=== PATIENT | male | born 1980 | race Caucasian/White ===

== ENCOUNTER 2016-05-10 | Emergency (ER) | payer SELFPAY | END 2016-05-10 21:54 | disposition home or self-care (01) ==

== ENCOUNTER 2018-08-15 19:06 | Emergency (ER) | payer SELFPAY ==
[2018-08-15 19:13] VITALS: BP 169/110
--- NOTE | 2018-08-15 19:27 | ED Physician Documentation ---
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 This decreased and he is taking some fluids now. But still having feeling of general weakness and some nausea. No current abd pains, but recent intermittent cramping the past couple of hours.) Timing - details: Abrupt onset, Still present (much decreased the past couple of hours, but still general weakness and some nausea.) Associated symptoms: Abdominal pain (cramping intermittent lower abd), Dizzy (feeling lightheaded earlier, but not currently), Loss of appetite. No: Fever, Hematemesis, Hematochezia Improved by: No: Vomiting Worsened by: Eating Similar symptoms before: Has not had sx before Recently seen: Not recently seen Review of Systems Constitutional: reports: Myalgias. denies: Fever Nose: denies: Rhinorrhea / runny nose, Congestion Throat: denies: Sore throat Cardiac: denies: Chest pain / pressure Respiratory: denies: Cough GI: reports: Abdominal Pain, Nausea, Vomiting, Diarrhea. denies: Abdominal Swelling, Hematemesis, Bloody / black stool Neurologic: reports: Generalized weakness, Headache (mild). denies: Near syncope, Altered mental status PD PAST MEDICAL HISTORY - Past Medical History Past Medical History: No Cardiovascular: None Respiratory: None Endocrine/Autoimmune: None - Past Surgical History Past Surgical History: Yes Ortho: Other - Present Medications Home Medications: Ambulatory Orders Medication Instructions Recorded Confirmed Ondansetron Odt [Zofran] 4 mg TL Q6H PRN #10 tablet 08/15/18 - Allergies Allergies/Adverse Reactions: Allergies Allergy/AdvReac Type Severity Reaction Status Date / Time camphor [From Vicks Vaporub] Allergy Unknown Verified 08/15/18 19:14 eucalyptus Allergy Unknown Verified 08/15/18 19:14 [From Vicks Vaporub] eucalyptus oil * Allergy Unknown Verified 08/15/18 19:14 [From Vicks Vaporub] menthol [From Vicks Vaporub] Allergy Unknown Verified 08/15/18 19:14 petrolatum,white Allergy Unknown Verified 08/15/18 19:14 [From Vicks Vaporub] turpentine oil Allergy Unknown Verified 08/15/18 19:14 [From Vicks Vaporub] - Social History Does the pt smoke?: Yes Smoking Status: Current every day smoker Does the pt drink ETOH?: Yes Does the pt have substance abuse?: Yes Substance Use and Type: Marijuana - Immunizations Immunizations are current?: No Immunizations: TDAP >10years/unknown - POLST Patient has POLST: No PD ED PE NORMAL - Vitals Vital signs reviewed: Yes - General General: Alert and oriented X 3, Well developed/nourished - HEENT HEENT: Pharynx benign. No: Moist mucous membranes - Neck Neck: Supple, no meningeal sign, No adenopathy - Cardiac Cardiac: No murmur. No: RRR (regular but tachycardic) - Respiratory Respiratory: Clear bilaterally - Abdomen Abdomen: Soft, Non tender, Non distended. No: Normal bowel sounds (diminished) - Derm Derm: Normal color, Warm and dry - Neuro Neuro: Alert and oriented X 3, No motor deficit, Normal speech Results - Vitals Vitals: Vital Signs - 24 hr 08/15/18 19:11 Temperature 36.7 C Heart Rate 124 H Respiratory 20 Rate Blood Pressure 169/110 H O2 Saturation 99 Oxygen O2 Source Room air PD MEDICAL DECISION MAKING - ED course Complexity details: considered differential (Sounds likely a viral GE. He does not feel he needs IV fluids, despite some tachycardia. Shared decision to treat with meds and see how he does into tomorrow. ), d/w patient Departure - Departure Disposition: 01 Home, Self Care Clinical Impression: Nausea vomiting and diarrhea Condition: Stable Record reviewed to determine appropriate education?: Yes Instructions: ED Food Poison Or Gastroenteritis Prescriptions: Ondansetron Odt [Zofran] 4 mg TL Q6H PRN #10 tablet PRN Reason: Nausea / Vomiting Comments: This sounds likely to be a viral intestinal illness or possibly food poisoning. Both usually last 12-24 hours and then improve. He will likely feel little headache and achy for a day or so. Use ondansetron if needed for nausea. Tylenol if needed for aches and pains. I wrote a prescription for more nausea medicine so you less likely to need it beyond tonight. Off work today. Resume Friday assuming feeling better. Forms: Activity restrictions Discharge Date/Time: 08/15/18 19:53
[2018-08-15] MEDS ORDERED: ONDANSETRON ODT 4 MG TABLET TL STA (19:41)
[2018-08-15] MEDS ORDERED: ONDANSETRON ODT 4 MG Prepack 2 TL PRN (19:41)
[2018-08-15] MEDS ORDERED: ACETAMINOPHEN 325 MG TABLET PO STA (19:41)
== END 2018-08-15 19:53 | disposition home or self-care (01) ==
LOC: ED 19:06
DX: R11.2 Nausea with vomiting, unspecified (principal); R19.7 Diarrhea, unspecified; F17.200 Nicotine dependence, unspecified, uncomplicated
CPT/HCPCS: 99283; A9270; Q0162

== ENCOUNTER 2020-07-18 10:23 | Inpatient (IN) | payer MEDICAID ==
[2020-07-18] MEDS ORDERED: SODIUM CHLORIDE 0.9% 1,000 ML IV STA (10:47)
[2020-07-18] MEDS ORDERED: INSULIN REGULAR HUMAN 100 UNIT/1 ML 10 ML MDV SUBQ STA (10:47)
[2020-07-18 11:21] LABS: BILIRUBIN,URINE NEGATIVE (NEGATIVE); GLUCOSE, URINE (UA) >=1000 mg/dL (NEGATIVE); KETONES,URINE (UA) NEGATIVE (NEGATIVE); LEUKOCYTE ESTERASE, URINE NEGATIVE (NEGATIVE); NITRITE,URINE NEGATIVE (NEGATIVE); OCCULT BLOOD,URINE NEGATIVE (NEGATIVE); PROTEIN,URINE NEGATIVE (NEGATIVE); UROBILINOGEN,URINE 0.2 (NORMAL) E.U./dL (NORMAL)
[2020-07-18 11:22] LABS: CLARITY,URINE CLEAR (CLEAR)
[2020-07-18 11:25] LABS: BASOPHILS # (AUTO) 0.1 10^3/uL (0.0-0.1); BASOPHILS % (AUTO) 0.8 %; EOSINOPHILS # (AUTO) 0.1 10^3/uL (0.0-0.7); EOSINOPHILS % (AUTO) 1.5 %; HCT - HEMATOCRIT 47.8 % (42.0-52.0); HGB - HEMOGLOBIN 16.9 g/dL (14.0-18.0); LYMPHOCYTES # (AUTO) 2.4 10^3/uL (1.5-3.5); LYMPHOCYTES % (AUTO) 30.6 %; MEAN CORPUSCULAR HEMOGLOBIN 28.8 pg (27.0-31.0); MEAN CORPUSCULAR HGB CONC 35.4 g/dL (32.0-36.0); MEAN CORPUSCULAR VOLUME 81.4 fL (80.0-94.0); MEAN PLATELET VOLUME 10.1 fL (7.4-11.4); MONOCYTES # (AUTO) 0.4 10^3/uL (0.0-1.0); MONOCYTES % (AUTO) 5.3 %; NEUTROPHILS # (AUTO) 4.8 10^3/uL (1.5-6.6); NEUTROPHILS % (AUTO) 61.7 %; PLT - PLATELET COUNT 249 10^3/uL (130-450); RED BLOOD COUNT 5.87 10^6/uL (4.70-6.10); RED CELL DISTRIBUTION WIDTH 12.6 % (12.0-15.0); WHITE BLOOD COUNT 7.8 x10^3/uL (4.8-10.8)
[2020-07-18 11:42] LABS: ALBUMIN 4.4 g/dL (3.2-5.5); ALBUMIN/GLOBULIN RATIO 1.2 (1.0-2.2); CALCIUM 10.1 mg/dL (8.5-10.3); POTASSIUM 4.4 mmol/L (3.5-5.0)
[2020-07-18] MEDS ORDERED: MORPHINE 2 MG/ML CARPUJECT IVP PRN (13:17)
[2020-07-18] MEDS ORDERED: oxyCODONE 5 MG TABLET PO PRN (13:17)
[2020-07-18] MEDS ORDERED: SODIUM CHLORIDE FLUSH 0.9% 10 ML SYRINGE IVP PRN (13:17)
[2020-07-18] MEDS ORDERED: ONDANSETRON 4 MG/2 ML VIAL IVP PRN (13:17)
[2020-07-18] MEDS ORDERED: ACETAMINOPHEN 325 MG TABLET PO PRN (13:17)
--- NOTE | 2020-07-18 13:19 | ED Physician Documentation ---
History of Present Illness - Stated complaint Stated Complaint: MALE - Chief complaint Chief Complaint: Abd Pain - History obtained from History obtained from: Patient - Additonal information Additional information: 40-year-old man, daily drinker and daily smoker, otherwise healthy presents with polydipsia and polyuria progressively worsening over the past week or so associated with nonbloody nonbilious nausea vomiting x1 yesterday and some abdominal discomfort which is now resolved. Patient endorsing bloating sensation but at present denies abdominal pain. denies chest pain, shortness of breath, fever, diarrhea. Review of Systems Ten Systems: 10 systems reviewed and negative Constitutional: denies: Fever GI: reports: Abdominal Pain, Nausea, Vomiting. denies: Diarrhea Endocrine: reports: Polydypsia, Polyuria PD PAST MEDICAL HISTORY - Past Medical History Cardiovascular: None Respiratory: None, Pneumonia Endocrine/Autoimmune: None - Past Surgical History Past Surgical History: Yes Ortho: Other - Present Medications Home Medications: Ambulatory Orders Medication Instructions Recorded Confirmed No Known Home Medications 07/18/20 07/18/20 - Allergies Allergies/Adverse Reactions: Allergies Allergy/AdvReac Type Severity Reaction Status Date / Time camphor [From Vicks Vaporub] Allergy Rash Verified 07/18/20 10:36 eucalyptus Allergy Rash Verified 07/18/20 10:36 [From Vicks Vaporub] eucalyptus oil * Allergy Rash Verified 07/18/20 10:36 [From Vicks Vaporub] menthol [From Vicks Vaporub] Allergy Rash Verified 07/18/20 10:36 petrolatum,white Allergy Rash Verified 07/18/20 10:36 [From Vicks Vaporub] turpentine oil Allergy Rash Verified 07/18/20 10:36 [From Vicks Vaporub] - Social History Does the pt smoke?: Yes Smoking Status: Current every day smoker Does the pt drink ETOH?: Yes Does the pt have substance abuse?: Yes - Immunizations Immunizations are current?: No Immunizations: TDAP >10years/unknown - POLST Patient has POLST: No PD ED PE NORMAL - Vitals Vital signs reviewed: Yes - General General: Alert and oriented X 3, No acute distress, Well developed/nourished - HEENT HEENT: Atraumatic, PERRL, EOMI - Neck Neck: Supple, no meningeal sign - Cardiac Cardiac: RRR - Respiratory Respiratory: No respiratory distress, Clear bilaterally - Abdomen Abdomen: Non tender, Other (moderately distended) - Derm Derm: Normal color, Warm and dry - Extremities Extremities: No deformity - Neuro Neuro: Alert and oriented X 3 - Psych Psych: Normal mood, Normal affect Results - Vitals Vitals: Vital Signs - 24 hr 07/18/20 07/18/20 07/18/20 10:37 11:23 11:24 Temperature 36.8 C Heart Rate 87 79 Respiratory 18 16 Rate Blood Pressure 151/101 H 140/108 H O2 Saturation 96 94 Oxygen O2 Source Room air - Labs Labs: Laboratory Tests 07/18/20 07/18/20 07/18/20 11:05 11:10 11:10 WBC 7.8 RBC 5.87 Hgb 16.9 Hct 47.8 MCV 81.4 MCH 28.8 MCHC 35.4 RDW 12.6 Plt Count 249 MPV 10.1 Neut # (Auto) 4.8 Lymph # (Auto) 2.4 [place] # (Auto) 0.4 Eos # (Auto) 0.1 Baso # (Auto) 0.1 Absolute Nucleated RBC 0.00 Nucleated RBC % 0.0 Sodium 118 L* Potassium 4.4 Chloride 82 L Carbon Dioxide 23 Anion Gap 13.0 BUN 26 H Creatinine 1.0 Estimated GFR (MDRD) 82 L Glucose 862 H* Lactic Acid Calcium 10.1 Total Bilirubin 1.0 AST 20 ALT 55 Alkaline Phosphatase 81 Total Protein 8.0 Albumin 4.4 Globulin 3.6 Albumin/Globulin Ratio 1.2 Lipase 135 H Urine Color LIGHT YELLOW Urine Clarity CLEAR Urine pH 6.0 Ur Specific [place] <=1.005 Urine Protein NEGATIVE Urine Glucose (UA) >=1000 H Urine Ketones NEGATIVE Urine Occult Blood NEGATIVE Urine Nitrite NEGATIVE Urine Bilirubin NEGATIVE Urine Urobilinogen 0.2 (NORMAL) Ur Leukocyte Esterase NEGATIVE Ur Microscopic Review NOT INDICATED Urine Culture Comments NOT INDICATED Serum Ketones 07/18/20 07/18/20 11:10 11:58 WBC RBC Hgb Hct MCV MCH MCHC RDW Plt Count MPV Neut # (Auto) Lymph # (Auto) [place] # (Auto) Eos # (Auto) Baso # (Auto) Absolute Nucleated RBC Nucleated RBC % Sodium Potassium Chloride Carbon Dioxide Anion Gap BUN Creatinine Estimated GFR (MDRD) Glucose Lactic Acid 1.0 Calcium Total Bilirubin AST ALT Alkaline Phosphatase Total Protein Albumin Globulin Albumin/Globulin Ratio Lipase Urine Color Urine Clarity Urine pH Ur Specific [place] Urine Protein Urine Glucose (UA) Urine Ketones Urine Occult Blood Urine Nitrite Urine Bilirubin Urine Urobilinogen Ur Leukocyte Esterase Ur Microscopic Review Urine Culture Comments Serum Ketones NEGATIVE PD MEDICAL DECISION MAKING - ED course ED course: 40-year-old man presents with new onset diabetes with significant electrolyte derangements. Discussed with hospitalist Dr. Little who will admit. Patient aware and agreeable. Departure - Departure Disposition: 66 [facility] DC/Xfer Clinical Impression: Diabetes mellitus, new onset, Polydipsia, Polyuria, Elevated lipase, Hyp onatremia Condition: Stable
[2020-07-18] MEDS ORDERED: INSULIN ASPART 300 UNIT/3 ML PEN SUBQ ONE ×2 (13:32→15:24)
[2020-07-18] MEDS ORDERED: LORazepam 2 MG/ML VIAL IVP PRN (13:33)
--- NOTE | 2020-07-18 13:39 | HISTORY & PHYSICAL EXAMINATION ---
Chief Complaint - Chief Complaint Chief Complaint: nausea, vomiting and abdominal discomfort History of Present Illness - Admitted From Admitted From:: ER - History Obtained From Records Reviewed: [facility] History obtained from: pt Exam Limitations: no - History of Present Illness HPI Comment/Other: This is a [id number] male with no medical history per pt report, Who present to ER complain nausea, vomiting, discomfortable of abdomen. He report he had frequently urination on last night per every 30 minutes. He also report he feels very thirsty. He think he drink too much fluids and he become nauseated and vomiting on today. He initially complains discomfortable of abdomen, now he complain right Flank pain. Patient denies he has a history of diabetic. He denies fever, chill, shortness breathing, chest pain. He will report he is still smoking cigarette 1 pack/day, And smoke marijuana but no other illicit drug. He Report he drank alcohol very heavily when he is on a young age, Now he cut back. He report he drinks alcohol per week but not every day. Routine laboratory tests that show patient had glucose level 863, sodium 118, lipase 135. IN ER, Patient is afebrile, Elevated blood pressure, otherwise hemodynamic stable. Given above medical condition, medical team was consulted for admission. Discussed the care goal with patient, patient requests full code. History - Past Medical History Cardiovascular: reports: None Respiratory: reports: None, Pneumonia Endocrine/Autoimmune: reports: None MRSA Hx?: No - Past Surgical History Ortho: reports: Other - POLST Patient has POLST: No Meds/Allgy - Home Medications Home Medications: Ambulatory Orders Medication Instructions Recorded Confirmed No Known Home Medications 07/18/20 07/18/20 - Allergies Allergies/Adverse Reactions: Allergies Allergy/AdvReac Type Severity Reaction Status Date / Time camphor [From Vicks Vaporub] Allergy Rash Verified 07/18/20 10:36 eucalyptus Allergy Rash Verified 07/18/20 10:36 [From Vicks Vaporub] eucalyptus oil * Allergy Rash Verified 07/18/20 10:36 [From Vicks Vaporub] menthol [From Vicks Vaporub] Allergy Rash Verified 07/18/20 10:36 petrolatum,white Allergy Rash Verified 07/18/20 10:36 [From Vicks Vaporub] turpentine oil Allergy Rash Verified 07/18/20 10:36 [From Vicks Vaporub] Review of Systems - Constitutional Constitutional: denies: Fatigue, Fever, Chills, Weakness, Poor appetite, Diaphoresis - Eyes Eyes: denies: Pain, Blurred vision, Field loss, Vision loss - Ears, Nose & Throat Ears, Nose & Throat: denies: Ear pain, Tinnitus, Nosebleeds, Bleeding gums - Cardiovascular Cariovascular: denies: Irregular heart rate, Palpitations, Chest pain, Edema, Lightheadedness, Syncope, Exertional dyspnea, Decr. exercise tolerance - Respiratory Respiratory: denies: Cough, Sputum production, Snoring, Hemoptysis, Orthopnea, SOB at rest, SOB with exertion - Gastrointestinal Gastrointestinal: reports: Abdominal pain, Nausea, Vomiting. denies: Constipation, Diarrhea, Rectal bleeding, Black stools, Bloody stools - Genitourinary Genitourinary: reports: Frequency, Flank pain. denies: Dysuria, Urgency, Incontinence - Musculoskeletal Musculoskeletal: denies: Muscle pain, Muscle aches, Limited range of motion - Integumentary Integumentary: denies: Rash, Lesions, Lumps - Neurological Neurological: denies: General weakness, Focal weakness, Headache, Dizziness, Numbness, Memory problems, Abnormal gait, Seizures, Incoordination, Slurred speech - Psychiatric Psychiatric: denies: Depression, Suicidal, Delusions - Endocrine Endocrine: reports: Polyuria, Polydypsia, Polyphagia - Hematologic/Lymphatic Hematologic/Lymphatic: denies: Anemia, Petechiae, Blood clots Prior Level of Functionality: Patient is independent in the home Exam - Vital Signs Vital Signs: Vital Signs x48h Temp Pulse Resp BP Pulse Ox 07/18/20 11:24 140/108 H 07/18/20 11:23 79 16 94 07/18/20 10:37 36.8 C 87 18 151/101 H 96 - Physical Exam General Appearance: positive: No acute distress, Alert. negative: Lethargic Eyes Bilateral: positive: Normal inspection, PERRL, No lid inflammation ENT: positive: ENT inspection nml, No signs of dehydration. negative: Purulent nasal drainage Neck: positive: Nml inspection, Trachea midline. negative: Thyromegaly, T suki deviation Respiratory: positive: Chest non-tender, No respiratory distress, Other (Diminished lung sounds bilaterally). negative: Breath sounds nml, Wheezes, Rales Cardiovascular: positive: Regular rate & rhythm, No murmur. negative: Irregu larly irregular, Tachycardia, Bradycardia, Systolic murmur, Diastolic murmur Peripheral Pulses: positive: 2+ Abdomen: positive: Non-tender, Nml bowel sounds, No distention. negative: Tenderness, Guarding, Rebound Back: positive: Nml inspection. negative: CVA tenderness (R), CVA tenderness (L) Skin: positive: Color nml, Warm, Dry. negative: Cyanosis, Diaphoresis, Pallor Extremities: positive: Non-tender, Full ROM, Nml appearance. negative: Calf tenderness Neurologic/Psychiatric: positive: Oriented x3, Motor nml, Sensation nml, Mood/affect nml. negative: Weakness, Sensory loss, Facial droop, Slurred/abnml speech, Depressed mood/affect Sepsis Event Note (H) - Evaluation Current Stage of Sepsis: Ruled out Conclusion/Plan - Problem List (1) Diabetes mellitus, new onset Conclusion/Plan: pt clinically present Polyuria, Polydypsia, Polyphagia, Severe hyperglycemia, Severe hyponatremia. Patient denies he has history of diabetic. Serum ketone is negative, anion gap is in the normal arrange. We will check A1c we will start with sliding scale, Lantus, ACH S check glucose, hypoglycemia protocol, consult with physical therapy supervisor, RN education for pt, And intravenous IV fluids, manager steel (2) Hyperglycemia Conclusion/Plan: Patient had a glucose level 863, the patient is alert and orientated. Patient denies he has history of diabetic. Patient is likely to have new onset diabetic. We will give patient insulin, intravenous IV fluids, supervisor laboratory. (3) Hyponatremia Conclusion/Plan: Patient had sodium 118, Patient is alert orientated.It is likely caused by severe hyperglycemia induced hyponatremia. Patient's serum ketone is negative.We will give patient intravenous IV fluids with normal saline, We will control patient glucose level with insulin, Continue supervisor laboratory, will check Na on tonight. (4) Nausea & vomiting Conclusion/Plan: Patient report he had nausea and vomiting with abdominal discomfort. It is likely caused by patient's severe hyperglycemia and diabetes. his serum is negative, anion gap is in the normal arrange. Antiemesis as needed, continue intravenous IV fluids, manager steel (5) Right flank pain Conclusion/Plan: Patient report right flank pain, patient also has mild elevated lipase. Patient has history of alcoholism and now has new onset of DM2. We will order CT of abdomen/pelvis, will followup, and pain control. (6) Current smoker Conclusion/Plan: Patient report he smoke 1 package per day, we will give patient nicotine patch (7) Alcoholism Conclusion/Plan: he reported he used to be heavy alcohol drinker, now he cut back. order CIWA protocol, and vitamin B1 for patient - Lab Results Fish Bones: 07/18/20 11:10 07/18/20 11:10 Core Measures - Anticipated LOS I expect patient to be DC'd or transferred within 96 hours.: Yes - DVT/VTE - Prophylaxis VTE/DVT Device ordered at admit?: Yes VTE/DVT Prophylaxis med ordered at admit?: Yes
[2020-07-18] MEDS ORDERED: NICOTINE 14 MG PATCH TOP STA (13:40)
[2020-07-18 13:52] LABS: MUDS CUTOFF CONCENTRATIONS CUTOFF CONC BELOW:
[2020-07-18] MEDS ORDERED: chlordiazePOXIDE 25 MG CAPSULE PO SCH (14:00)
[2020-07-18 14:16] LABS: AMPHETAMINE SCREEN,URINE NEGATIVE (NEGATIVE); BARBITURATE SCREEN,UR NEGATIVE (NEGATIVE); BENZODIAZEPINES SCREEN, URINE NEGATIVE (NEGATIVE); COCAINE SCREEN URINE NEGATIVE (NEGATIVE); METHADONE SCREEN, URINE NEGATIVE (NEGATIVE); METHAMPHETAMINES SCREEN, URINE NEGATIVE (NEGATIVE); OPIATE SCREEN, URINE NEGATIVE (NEGATIVE); OXYCODONE SCREEN, URINE NEGATIVE (NEGATIVE); PROPOXYPHENE SCREEN, URINE NEGATIVE (NEGATIVE); THC CANNABINOID SCREEN, URINE NEGATIVE (NEGATIVE); TRICYCLIC ANTIDEPRESSANT,URINE NEGATIVE (NEGATIVE)
[2020-07-18 14:24] LABS: B. PARAPERTUSSIS- RESP PCR PAN NOT DETECTED; B. PERTUSSIS- RESP PCR PANEL NOT DETECTED; C. PNEUMONIAE- RESP PCR PANEL NOT DETECTED; CORONAVIRUS 229E-RESP PCR NOT DETECTED; CORONAVIRUS HKU1-RESP PCR NOT DETECTED; CORONAVIRUS NL63-RESP PCR NOT DETECTED; CORONAVIRUS OC43-RESP PCR NOT DETECTED; HUMAN METAPNEUMOVIRUS NOT DETECTED; INFLUENZA A- RESP PCR PANEL NOT DETECTED; INFLUENZA B - RESP PCR PANEL NOT DETECTED; M. PNEUMONIAE- RESP PCR PANEL NOT DETECTED; PARAINFLUENZA VIRUS 1 NOT DETECTED; PARAINFLUENZA VIRUS 2 NOT DETECTED; PARAINFLUENZA VIRUS 3 NOT DETECTED; PARAINFLUENZA VIRUS 4 NOT DETECTED; RHINOVIRUS/ENTEROVIRUS NOT DETECTED; RSV- RESP PCR PANEL NOT DETECTED; SARS-CoV-2 -RESP PCR PANEL NOT DETECTED
[2020-07-18] MEDS: SODIUM CHLORIDE 0.9% 1,000 ML IV SCH ×2 (14:55→21:50)
[2020-07-18] MEDS: PRENATAL VITAMIN TABLET PO SCH (14:59)
[2020-07-18] MEDS: THIAMINE 100 MG TABLET PO SCH (14:59)
[2020-07-18] MEDS ORDERED: IOVERSOL 320 100 ML VIAL IVP ONE ×2 (16:24→16:45)
--- NOTE | 2020-07-18 16:25 | PHARMACY PROGRESS NOTE ---
- Best Possible Medication History Admit Date and Time: 07/18/20 1318 Processed by: Nursing Medication History completed: Yes Patient Interview: Completed Secondary Source(s): Insurance records Medication list updated and confirmed by RN. Documented as no home medications. Insurance records also indicate no prescription medications. As the person ultimately responsible for medication therapy, providers are able to order a medication from an existing home medication list in [facility] via the "Reconcile Routine" prior to Confirmation of that medication by direct support professional home health. Such practice is discouraged except when the physician, in their clinical judgment, deems that a medical need exists for a medication without regard to previous use.
[2020-07-18] MEDS: SODIUM CHLORIDE FLUSH 0.9% 10 ML SYRINGE IVP SCH (16:51)
[2020-07-18] MEDS: INSULIN ASPART 300 UNIT/3 ML PEN SUBQ SCH ×2 (16:59→22:02)
--- NOTE | 2020-07-18 17:14 | CT Report ---
PROCEDURE: Abdomen/Pelvis W INDICATIONS: right flank pain CONTRAST: IV CONTRAST: Optiray 320 ml: 100 PO CONTRAST: *NO PO CONTRAST TECHNIQUE: After the administration of IV contrast, 5 mm thick sections acquired from the diaphragms to the symp hysis. 5 mm thick coronal and sagittal reformats were acquired. For radiation dose reduction, the f ollowing was used: automated exposure control, adjustment of mA and/or kV according to patient size. COMPARISON: None. FINDINGS: ABDOMEN: Lung bases: Normal Hepatic steatosis Spleen: Normal Gallbladder: Normal Bile ducts: Normal Pancreas: Normal Adrenals: Normal Kidneys: Normal Bowel loops: Normal The appendix is not clearly identified however no suspicious inflammatory changes in the right lower quadrant. No free fluid or air. Abdominal nodes: Normal Aorta: Normal IVC: Normal No ventral hernias PELVIS: Bladder: Normal Pelvic nodes: Normal Groin: Normal Bones: No vertebral body compression fracture. Subcentimeter nonspecific lytic lesion seen in the L4 vertebral body. IMPRESSION: No visualized etiology for right flank pain. No evidence of urinary obstruction. The appendix is not clearly identified however no suspicious inflammatory changes in the right lower quadrant. Normal appearance of the gallbladder Hepatic steatosis Additional chronic and incidental findings as above. Reviewed by: Crispin Steven MD on 07/18/2020 5:13 PM PDT Approved by: Crispin Steven MD on 07/18/2020 5:13 PM PDT Station ID: [id number]
[2020-07-18 18:50] LABS: ESTIMATED AVERAGE GLUCOSE 246 mg/dL (70-100); HEMOGLOBIN A1c% 10.2 % (4.27-6.07)
[2020-07-18] MEDS ORDERED: INSULIN GLARGINE 300 UNIT/3 ML PEN SUBQ SCH ×2 (21:00→23:00)
[2020-07-18] MEDS: FAMOTIDINE 20 MG TABLET PO SCH (22:10)
[2020-07-19] MEDS: SODIUM CHLORIDE FLUSH 0.9% 10 ML SYRINGE IVP SCH ×2 (01:16→10:25)
[2020-07-19] MEDS: SODIUM CHLORIDE 0.9% 1,000 ML IV SCH (03:57)
[2020-07-19 05:04] LABS: BASOPHILS # (AUTO) 0.1 10^3/uL (0.0-0.1); BASOPHILS % (AUTO) 0.6 %; EOSINOPHILS # (AUTO) 0.3 10^3/uL (0.0-0.7); EOSINOPHILS % (AUTO) 3.6 %; HCT - HEMATOCRIT 42.4 % (42.0-52.0); HGB - HEMOGLOBIN 14.6 g/dL (14.0-18.0); LYMPHOCYTES # (AUTO) 2.8 10^3/uL (1.5-3.5); LYMPHOCYTES % (AUTO) 33.1 %; MEAN CORPUSCULAR HGB CONC 34.4 g/dL (32.0-36.0); MEAN CORPUSCULAR VOLUME 81.4 fL (80.0-94.0); MONOCYTES # (AUTO) 0.4 10^3/uL (0.0-1.0); MONOCYTES % (AUTO) 4.3 %; NEUTROPHILS # (AUTO) 4.9 10^3/uL (1.5-6.6); NEUTROPHILS % (AUTO) 58.2 %; PLT - PLATELET COUNT 212 10^3/uL (130-450); RED BLOOD COUNT 5.21 10^6/uL (4.70-6.10); WHITE BLOOD COUNT 8.4 x10^3/uL (4.8-10.8)
[2020-07-19 05:12] LABS: CALCIUM 8.6 mg/dL (8.5-10.3); CREATININE 0.9 mg/dL (0.6-1.2); POTASSIUM 3.9 mmol/L (3.5-5.0)
[2020-07-19] MEDS ORDERED: INSULIN ASPART 300 UNIT/3 ML PEN SUBQ ONE ×2 (07:50→13:52)
[2020-07-19] MEDS ORDERED: SODIUM CHLORIDE 0.9% 1,000 ML IV SCH (07:56)
[2020-07-19] MEDS: INSULIN ASPART 300 UNIT/3 ML PEN SUBQ SCH ×2 (08:09→12:05)
[2020-07-19] MEDS ORDERED: ENOXAPARIN 40 MG/0.4 ML SYRINGE SUBQ SCH (09:00)
[2020-07-19] MEDS: FAMOTIDINE 20 MG TABLET PO SCH (10:31)
[2020-07-19] MEDS: THIAMINE 100 MG TABLET PO SCH (10:31)
[2020-07-19] MEDS: PRENATAL VITAMIN TABLET PO SCH (10:32)
--- NOTE | 2020-07-19 11:55 | PROVIDER PROGRESS NOTE ---
Assessment/Plan - Problem List (1) Diabetes mellitus, new onset Assessment/Plan: 07/19 improved. glucose level is significant reduced. A1C is 10.2. Discussed with the patient for diabetic care, And educated patient for diabetic care. Patient want to take insulin in the home. Temporary Office Assistant and RN also educated for patient's Diabetic management. We will adjust insulin dosage on today and plan to discharge the patient with insulin, plan discharge patient on tomorrow pt clinically present Polyuria, Polydypsia, Polyphagia, Severe hyperglycemia, Severe hyponatremia. Patient denies he has history of diabetic. Serum ketone is negative, anion gap is in the normal arrange. We will check A1c we will start with sliding scale, Lantus, ACH S check glucose, hypoglycemia protocol, consult with powder line repairer, RN education for pt, And intravenous IV fluids, media monitor (2) Hyperglycemia Conclusion/Plan: 07/19 Significantly improved, We will continue sliding scale, Lantus in the night. Patient had a glucose level 863, the patient is alert and orientated. Patient denies he has history of diabetic. Patient is likely to have new onset diabetic. We will give patient insulin, intravenous IV fluids, oil laboratory analyst. (3) Hyponatremia Conclusion/Plan: 324,Sodium is 134 today, Nearly resolved. Continue intravenous IV fluids. Continue oil laboratory analyst. nurse later report pt want to drink lots of fluid, d/c IV fluid. Patient had sodium 118, Patient is alert orientated.It is likely caused by severe hyperglycemia induced hyponatremia. Patient's serum ketone is negative.We will give patient intravenous IV fluids with normal saline, We will control patient glucose level with insulin, Continue oil laboratory analyst, will check Na on tonight. (4) Nausea & vomiting Conclusion/Plan: 324, Resolved Patient report he had nausea and vomiting with abdominal discomfort. It is like ly caused by patient's severe hyperglycemia and diabetes. his serum is negative, anion gap is in the normal arrange. Antiemesis as needed, continue intravenous IV fluids, media monitor (5) Right flank pain Conclusion/Plan: 324, Resolved. CT Of abdomen/pelvis was unremarkable Patient report right flank pain, patient also has mild elevated lipase. Patient has history of alcoholism and now has new onset of DM2. We will order CT of abdomen/pelvis, will followup, and pain control. (6) Current smoker Conclusion/Plan: Patient report he smoke 1 package per day, we will give patient nicotine patch (7) Alcoholism Conclusion/Plan: he reported he used to be heavy alcohol drinker, now he cut back. order CIWA protocol, and vitamin B1 for patient - Current Meds Current Meds: Current Medications Generic Name Dose Route Start Last Admin Trade Name Freq PRN Reason Stop Dose Admin Acetaminophen 650 mg 07/18/20 13:17 07/19/20 01:15 Acetaminophen 325 Mg Tablet PO 650 mg Q4HR PRN Administration Pain 1 to 4 Enoxaparin Sodium 40 mg 07/19/20 09:00 07/19/20 10:30 Enoxaparin 40 Mg/0.4 Ml Syringe SUBQ 40 mg DAILY EVARISTO Administration Famotidine 20 mg 07/18/20 21:00 07/19/20 10:31 Famotidine 20 Mg Tablet PO 20 mg BID EVARISTO Administration Insulin Aspart 3 - 11 unit 07/19/20 08:00 07/19/20 08:09 Insulin Aspart 300 Unit/3 Ml Pen SUBQ 9 unit 0800,1200,1700,2100 EVARISTO Administration Protocol Oxycodone HCl 5 mg 07/18/20 13:17 07/19/20 01:15 Oxycodone 5 Mg Tablet PO 5 mg Q4HR PRN Administration Pain 5 to 7 Multivit/Folic Acid/Iron 1 tab 07/18/20 13:34 07/19/20 10:32 Vitamin Tablet PO 1 tab DAILY EVARISTO Administration Sodium Chloride 10 ml 07/18/20 13:17 07/18/20 14:55 Sodium Chloride Flush 0.9% 10 Ml Syringe IVP 10 ml PRN PRN Administration NEEDED PER PROVIDER ORDERS Sodium Chloride 10 ml 07/18/20 17:00 07/19/20 10:25 Sodium Chloride Flush 0.9% 10 Ml Syringe IVP Not Given 0100,0900,1700 EVARISTO Thiamine HCl 100 mg 07/18/20 13:34 07/19/20 10:31 Thiamine 100 Mg Tablet PO 100 mg DAILY EVARISTO Administration - Lab Result Fish Bone Diagrams: 07/19/20 04:25 07/19/20 04:25 - Additional Planning My Orders: My Active Orders 07/18/20 Lunch Carb-controlled Diet [DIET] 07/18/20 13:17 Activity Orders [RC] Q2HR IO [RC] IOSHIFT Initiate Bowel Care Protocol [RC] .protocol Initiate Line Care Protocol [RC] QSHIFT Initiate Personal Care Protoco [RC] .protocol Telemetry- [RC] Q4HR Vital Signs [RC] 0800,1600,0000 Acetaminophen [Tylenol] 650 mg PO Q4HR PRN Morphine Inj (Carpuject) [Morphine (Carpuject)] 2 mg IVP Q2HR PRN Ondansetron Inj [Zofran Inj] 4 mg IVP Q6HR PRN Sodium Chloride Flush 0.9% [Normal Saline Flush 0.9%] 10 ml IVP PRN PRN oxyCODONE [Roxicodone] 5 mg PO Q4HR PRN Code Status [OTHERS] Routine Condition of Patient [OTHERS] Routine DVT Prophylaxis [OTHERS] Routine 07/18/20 13:19 IV Insert [RC] .ONCE 07/18/20 13:20 SCDs [RC] QSHIFT 07/18/20 13:21 Social Work Consult [CONS] Routine 07/18/20 13:30 Blood Glucose Checks - Eating [RC] 0800,1200,1700,2100 Initiate Hypoglycemia Protocol [RC] .protocol Nutrition Consult [CONS] Routine 07/18/20 13:33 CIWA - AR Score Card [RC] Q4HR LORazepam INJ [Ativan Inj (Vial)] 1 mg IVP Q30M PRN 07/18/20 13:34 Vitamin [Trinatal Rx 1] 1 tab PO DAILY Thiamine [Vitamin B-1] 100 mg PO DAILY 07/18/20 17:00 Sodium Chloride Flush 0.9% [Normal Saline Flush 0.9%] 10 ml IVP 0100,0900,1700 07/18/20 21:00 Famotidine [Pepcid] 20 mg PO BID 07/19/20 08:00 Insulin Aspart [NovoLOG] 3 - 11 unit SUBQ 0800,1200,1700,2100 07/19/20 09:00 Enoxaparin [Lovenox] 40 mg SUBQ DAILY 07/19/20 21:00 Insulin Glargine [Lantus Solostar] 15 unit SUBQ QPM 07/20/20 05:00 BMP - BASIC METABOLIC PANEL [CHEM] DAILYLAB CBC - COMP BLD CT W/AUTO DIFF [HEME] DAILYLAB 07/21/20 05:00 BMP - BASIC METABOLIC PANEL [CHEM] DAILYLAB CBC - COMP BLD CT W/AUTO DIFF [HEME] DAILYLAB 07/22/20 05:00 BMP - BASIC METABOLIC PANEL [CHEM] DAILYLAB CBC - COMP BLD CT W/AUTO DIFF [HEME] DAILYLAB 07/23/20 05:00 BMP - BASIC METABOLIC PANEL [CHEM] DAILYLAB CBC - COMP BLD CT W/AUTO DIFF [HEME] DAILYLAB Subjective - Subjective Patient Reports: Feeling Better Objective Vital Signs: Vital Signs - 24 hr 07/18/20 07/18/20 07/18/20 13:46 14:34 16:00 Temperature 36.7 C 37.5 C 36.5 C Heart Rate 86 Heart Rate [ Brachial] Heart Rate [ 88 69 Monitoring electrodes] Respiratory 16 17 18 Rate Blood Pressure 135/97 H Blood Pressure 141/109 H 134/96 H [Left Brachial artery] O2 Saturation 99 97 98 07/19/20 07/19/20 07/19/20 00:45 05:17 07:35 Temperature 36.9 C 36.8 C 36.5 C Heart Rate Heart Rate [ 70 74 71 Brachial] Heart Rate [ Monitoring electrodes] Respiratory 15 16 18 Rate Blood Pressure Blood Pressure 132/77 H 124/73 136/82 H [Left Brachial artery] O2 Saturation 96 92 95 07/19/20 11:10 Temperature 36.3 C L Heart Rate Heart Rate [ 71 Brachial] Heart Rate [ Monitoring electrodes] Respiratory 18 Rate Blood Pressure Blood Pressure 128/90 H [Left Brachial artery] O2 Saturation 97 Oxygen O2 Source Room air I&O (Last 24 Hrs): Intake and Output Totals x24h 07/17/20 07/18/20 07/19/20 23:59 23:59 23:59 Intake Total 3160 1840 Output Total 775 460 Balance 2385 1380 General: Alert, Oriented x3, Cooperative, No acute distress HEENT: Atraumatic Neck: Supple Lymphatic: no adenopathy Neuro: Alert, Non Focal, Oriented Times 3 Cardiovascular: Regular rate, Normal S1, Normal S2 Respiratory: Chest non-tender, No respiratory distress Abdomen: Normal bowel sounds, Soft, No tenderness Extremities: Normal pulses - Results Results: Laboratory Results WBC 8.4 x10^3/uL (4.8-10.8) 07/19/20 04:25 RBC 5.21 10^6/uL (4.70-6.10) 07/19/20 04:25 Hgb 14.6 g/dL (14.0-18.0) 07/19/20 04:25 Hct 42.4 % (42.0-52.0) 07/19/20 04:25 MCV 81.4 fL (80.0-94.0) 07/19/20 04:25 MCH 28.0 pg (27.0-31.0) 07/19/20 04:25 MCHC 34.4 g/dL (32.0-36.0) 07/19/20 04:25 RDW 13.0 % (12.0-15.0) 07/19/20 04:25 Plt Count 212 10^3/uL (130-450) 07/19/20 04:25 MPV 10.0 fL (7.4-11.4) 07/19/20 04:25 Neut # (Auto) 4.9 10^3/uL (1.5-6.6) 07/19/20 04:25 Lymph # (Auto) 2.8 10^3/uL (1.5-3.5) 07/19/20 04:25 Casey # (Auto) 0.4 10^3/uL (0.0-1.0) 07/19/20 04:25 Eos # (Auto) 0.3 10^3/uL (0.0-0.7) 07/19/20 04:25 Baso # (Auto) 0.1 10^3/uL (0.0-0.1) 07/19/20 04:25 Absolute Nucleated RBC 0.00 x10^3/uL 07/19/20 04:25 Nucleated RBC % 0.0 /100WBC 07/19/20 04:25 Sodium 134 mmol/L (135-145) L 07/19/20 04:25 Potassium 3.9 mmol/L (3.5-5.0) 07/19/20 04:25 Chloride 102 mmol/L (101-111) 07/19/20 04:25 Carbon Dioxide 26 mmol/L (21-32) 07/19/20 04:25 Anion Gap 6.0 (6-13) 07/19/20 04:25 BUN 21 mg/dL (6-20) H 07/19/20 04:25 Creatinine 0.9 mg/dL (0.6-1.2) 07/19/20 04:25 Estimated GFR (MDRD) 93 (>89) 07/19/20 04:25 Glucose 342 mg/dL (70-100) H 07/19/20 04:25 POC Whole Bld Glucose 156 mg/dL (70 - 100) H 07/19/20 11:10 Estimat Average Glucose 246 mg/dL (70-100) H 07/18/20 11:10 Hemoglobin A1c % 10.2 % (4.27-6.07) H 07/18/20 11:10 Lactic Acid 1.0 mmol/L (0.5-2.2) 07/18/20 11:58 Calcium 8.6 mg/dL (8.5-10.3) 07/19/20 04:25 Total Bilirubin 1.0 mg/dL (0.2-1.0) 07/18/20 11:10 AST 20 IU/L (10-42) 07/18/20 11:10 ALT 55 IU/L (10-60) 07/18/20 11:10 Alkaline Phosphatase 81 IU/L (42-121) 07/18/20 11:10 Total Protein 8.0 g/dL (6.7-8.2) 07/18/20 11:10 Albumin 4.4 g/dL (3.2-5.5) 07/18/20 11:10 Globulin 3.6 g/dL (2.1-4.2) 07/18/20 11:10 Albumin/Globulin Ratio 1.2 (1.0-2.2) 07/18/20 11:10 Lipase 25 U/L (22-51) 07/19/20 04:25 Urine Color LIGHT YELLOW 07/18/20 11:05 Urine Clarity CLEAR (CLEAR) 07/18/20 11:05 Urine pH 6.0 PH (5.0-7.5) 07/18/20 11:05 Ur Specific [place] <=1.005 (1.002-1.030) 07/18/20 11:05 Urine Protein NEGATIVE mg/dL (NEGATIVE) 07/18/20 11:05 Urine Glucose (UA) >=1000 mg/dL (NEGATIVE) H 07/18/20 11:05 Urine Ketones NEGATIVE mg/dL (NEGATIVE) 07/18/20 11:05 Urine Occult Blood NEGATIVE (NEGATIVE) 07/18/20 11:05 Urine Nitrite NEGATIVE (NEGATIVE) 07/18/20 11:05 Urine Bilirubin NEGATIVE (NEGATIVE) 07/18/20 11:05 Urine Urobilinogen 0.2 (NORMAL) E.U./dL (NORMAL) 07/18/20 11:05 Ur Leukocyte Esterase NEGATIVE (NEGATIVE) 07/18/20 11:05 Ur Microscopic Review NOT INDICATED 07/18/20 11:05 Urine Culture Comments NOT INDICATED 07/18/20 11:05 Nasal Adenovirus (PCR) NOT DETECTED 07/18/20 13:28 Nasal B. parapertussis DNA (PCR) NOT DETECTED 07/18/20 13:28 Nasal Coronavir 229E PCR NOT DETECTED 07/18/20 13:28 Nasal Coronavir HKU1 PCR NOT DETECTED 07/18/20 13:28 Nasal Coronavir NL63 PCR NOT DETECTED 07/18/20 13:28 Nasal Coronavir OC43 PCR NOT DETECTED 07/18/20 13:28 Nasal Enterovir/Rhinovir PCR NOT DETECTED 07/18/20 13:28 Nasal Influenza B PCR NOT DETECTED 07/18/20 13:28 Nasal Influenza A PCR NOT DETECTED 07/18/20 13:28 Nasal Parainfluen 1 PCR NOT DETECTED 07/18/20 13:28 Nasal Parainfluen 2 PCR NOT DETECTED 07/18/20 13:28 Nasal Parainfluen 3 PCR NOT DETECTED 07/18/20 13:28 Nasal Parainfluen 4 PCR NOT DETECTED 07/18/20 13:28 Nasal RSV (PCR) NOT DETECTED 07/18/20 13:28 Nasal B.pertussis DNA PCR NOT DETECTED 07/18/20 13:28 Nasal C.pneumoniae (PCR) NOT DETECTED 07/18/20 13:28 Ayaz Human Metapneumo PCR NOT DETECTED 07/18/20 13:28 Nasal M.pneumoniae (PCR) NOT DETECTED 07/18/20 13:28 Nasal SARS-CoV-2 (PCR) NOT DETECTED 07/18/20 13:28 Urine Opiates Screen NEGATIVE (NEGATIVE) 07/18/20 11:05 Ur Oxycodone Screen NEGATIVE (NEGATIVE) 07/18/20 11:05 Urine Methadone Screen NEGATIVE (NEGATIVE) 07/18/20 11:05 Ur Propoxyphene Screen NEGATIVE (NEGATIVE) 07/18/20 11:05 Ur Barbiturates Screen NEGATIVE (NEGATIVE) 07/18/20 11:05 Ur Tricyclics Screen NEGATIVE (NEGATIVE) 07/18/20 11:05 Ur Phencyclidine Scrn NEGATIVE (NEGATIVE) 07/18/20 11:05 Ur Amphetamine Screen NEGATIVE (NEGATIVE) 07/18/20 11:05 U Methamphetamines Scrn NEGATIVE (NEGATIVE) 07/18/20 11:05 U Benzodiazepines Scrn NEGATIVE (NEGATIVE) 07/18/20 11:05 Urine Cocaine Screen NEGATIVE (NEGATIVE) 07/18/20 11:05 U Cannabinoids Screen NEGATIVE (NEGATIVE) 07/18/20 11:05 Ethyl Alcohol < 5.0 mg/dL 07/18/20 11:10 Serum Ketones NEGATIVE (NEGATIVE) 07/18/20 11:10 Sepsis Event Note (H) - Evaluation Current Stage of Sepsis: Ruled out ABX Reporting Has patient been on IV antibiotics over the past 48 hours?: No Current Medications - Current Medications Current Medications: Active Medications Acetaminophen (Acetaminophen 325 Mg Tablet) 650 mg PO Q4HR PRN PRN Reason: Pain 1 to 4 Last Admin: 07/19/20 01:15 Dose: 650 mg Documented by: Enoxaparin Sodium (Enoxaparin 40 Mg/0.4 Ml Syringe) 40 mg SUBQ DAILY [facility] Last Admin: 07/19/20 10:30 Dose: 40 mg Documented by: Famotidine (Famotidine 20 Mg Tablet) 20 mg PO BID [facility] Last Admin: 07/19/20 10:31 Dose: 20 mg Documented by: Insulin Aspart (Insulin Aspart 300 Unit/3 Ml Pen) 3 - 11 unit SUBQ 0800,1200,1700,2100 [facility]; Protocol Last Admin: 07/19/20 08:09 Dose: 9 unit Documented by: Insulin Glargine (Insulin Glargine 300 Unit/3 Ml Pen) 15 unit SUBQ QPM [facility] Lorazepam (Lorazepam 2 Mg/Ml Vial) 1 mg IVP Q30M PRN; Protocol PRN Reason: CIWA >8 Morphine Sulfate (Morphine 2 Mg/Ml Carpuject) 2 mg IVP Q2HR PRN PRN Reason: Pain 8 to 10 Ondansetron HCl (Ondansetron 4 Mg/2 Ml Vial) 4 mg IVP Q6HR PRN PRN Reason: Nausea / Vomiting Oxycodone HCl (Oxycodone 5 Mg Tablet) 5 mg PO Q4HR PRN PRN Reason: Pain 5 to 7 Last Admin: 07/19/20 01:15 Dose: 5 mg Documented by: Multivit/Folic Acid/Iron ( Vitamin Tablet) 1 tab PO DAILY [facility] Last Admin: 07/19/20 10:32 Dose: 1 tab Documented by: Sodium Chloride (Sodium Chloride Flush 0.9% 10 Ml Syringe) 10 ml IVP PRN PRN PRN Reason: NEEDED PER PROVIDER ORDERS Last Admin: 07/18/20 14:55 Dose: 10 ml Documented by: Sodium Chloride (Sodium Chloride Flush 0.9% 10 Ml Syringe) 10 ml IVP 0100,0900,1700 [facility] Last Admin: 07/19/20 10:25 Dose: Not Given Documented by: Thiamine HCl (Thiamine 100 Mg Tablet) 100 mg PO DAILY [facility] Last Admin: 07/19/20 10:31 Dose: 100 mg Documented by: No Known Home Medications 07/18/20
[2020-07-19] MEDS ORDERED: metFORMIN 850 MG TABLET PO SCH (14:09)
[2020-07-19] MEDS ORDERED: glipiZIDE 5 MG TABLET PO SCH (14:11)
--- NOTE | 2020-07-19 15:43 | Discharge Plan ---
Discharge Plan Problem Reviewed?: Yes Disposition: Home, Self Care Condition: Stable Prescriptions: metFORMIN [Glucophage] 850 mg PO BID #60 tablet glipiZIDE [Glucotrol] 5 mg PO 0730 #30 tablet Pnv No.95/Ferrous Fum/Folic AC [ Tablet] 1 each PO DAILY #30 tablet Thiamine [Vitamin B-1] 100 mg PO DAILY #30 tablet Diet: Diabetic Activity Restrictions: Activity as Tolerated Shower Restrictions: No (fall precaution) Instruction Topics: Diabetes Alcohol Consumption, Diabetes Assistant Winemaker Complications, Hyperglycemia, Hypoglycemia, Diabetes Type 2 Coping, Diabetes Type 2 Oral Meds, Metformin tablets, Glipizide tablets Health Concerns: new onset of diabetes, alcoholism Plan of Treatment: you would like to have oral medications for your new onset of diabetes. Medication Metformin and Glipizide are prescribed for you. you had extensive education for you how to deal with new onset of diabetes. As we discussed, You report you will do loss of your weight, exercise, control of your glucose intake, eating health diets, quit of your cigarette smoking, and control and quit of your alcohol intake as well. Care Goals: stabilization and control of your glucose level and your diabetes, quit cigarette smoking, and quit your alcoholism. Assessment: extensively discussed the care plan with you, answered your questions, you understood and agreed. Additional Instructions or Follow Up instructions: You may followup with your PCP in one week. Should your symptoms return or worsen, you may present ER or call 911 for help. Follow-Up Care: [facility] - Diabetes Ed No Smoking: If you smoke, Please STOP! Call for help.
--- NOTE | 2020-07-19 15:56 | DISCHARGE SUMMARY ---
Discharge Summary Admit Date: 07/17/20 Discharge Date: 07/19/20 Discharging Provider: Vin Nick Condition at Discharge: Stable Discharge Disposition: 01 Home, Self Care Discharge Facility Name: home - DIAGNOSES Discharge Diagnoses with Status of Each Condition: (1) Diabetes mellitus, new onset pt's glucose level is better controlled in hospital. A1C is 10.2. pt declined to have home insulin. Patient is prescribed Metformin, glipizide According to up-to -date recommendation. Patient is also prescribed glucometer, strips, lancets. Patient really wanted to be discharged on today. Patient had extensive diabetic education in the hospital. Patient state he will do loss weight, control glucose intake, quit smoking, quit alcohol as well. Patient is referred [place] [facility] [place] educator as well. (2) Hyperglycemia pt's glucose level is better controlled. Patient is prescribed Metformin, glipizide, glucometer, strips, lancets. pt declined to have home insulin. (3) Hyponatremia resolved. Na is 134 (4) Nausea & vomiting Resolved, Patient tolerated diet (5) Right flank pain Resolved. Patient has no more right flank pain, CT Of abdomen/pelvis was unremarkable (6) Current smoker Patient state he will quit cigarette smoke (7) Alcoholism Patient stated he will quit alcohol, patient is prescribed and vitamin B-1 - HPI History of Present Illness: This is a [id number] male with no medical history per pt report, Who present to ER complain nausea, vomiting, discomfortable of abdomen. He report he had frequently urination on last night per every 30 minutes. He also report he feels very thirsty. He think he drink too much fluids and he become nauseated and vomiting on today. He initially complains discomfortable of abdomen, now he complain right Flank pain. Patient denies he has a history of diabetic. He denies fever, chill, shortness breathing, chest pain. He will report he is still smoking cigarette 1 pack/day, And smoke marijuana but no other illicit drug. He Report he drank alcohol very heavily when he is on a young age, Now he cut back. He report he drinks alcohol per week but not every day. Routine laboratory tests that show patient had glucose level 863, sodium 118, lipase 135. IN ER, Patient is afebrile, Elevated blood pressure, otherwise hemodynamic stable. Given above medical condition, medical team was consulted for admission. Discussed the care goal with patient, patient requests full code. - HOSPITAL COURSE Hospital Course: Patient is admitted for nausea, vomiting, abdominal discomfort. Patient was found to have new onset diabetic, severe hyperglycemia and severe hyponatremia. After the patient was given insulin, intravenous normal saline, Patient glucose was controlled, hyponatremia is resolved. Patient declined to have insulin in the home, patient is prescribed Metformin, glipizide, glucometer, lancets, strips. - ALLERGIES Allergies/Adverse Reactions: Allergies Allergy/AdvReac Type Severity Reaction Status Date / Time camphor [From Vicks Vaporub] Allergy Rash Verified 07/18/20 10:36 eucalyptus Allergy Rash Verified 07/18/20 10:36 [From Vicks Vaporub] eucalyptus oil * Allergy Rash Verified 07/18/20 10:36 [From Vicks Vaporub] menthol [From Vicks Vaporub] Allergy Rash Verified 07/18/20 10:36 petrolatum,white Allergy Rash Verified 07/18/20 10:36 [From Vicks Vaporub] turpentine oil Allergy Rash Verified 07/18/20 10:36 [From Vicks Vaporub] - MEDICATIONS Home Medications: Ambulatory Orders Medication Instructions Recorded Confirmed Blood Sugar Diagnostic [Glucometer 1 each QID #100 strip 07/19/20 Strips] Blood-Glucose Meter [Glucometer] 1 each QID #1 each 07/19/20 Lancets 1 each MC QID #100 each 07/19/20 Pnv No.95/Ferrous Fum/Folic AC 1 each PO DAILY #30 tablet 07/19/20 [ Tablet] Thiamine [Vitamin B-1] 100 mg PO DAILY #30 tablet 07/19/20 glipiZIDE [Glucotrol] 5 mg PO 0730 #30 tablet 07/19/20 metFORMIN [Glucophage] 850 mg PO BID #60 tablet 07/19/20 - PHYSICAL EXAM AT DISCHARGE General Appearance: positive: No acute distress, Alert. negative: Lethargic Eyes Bilateral: positive: Normal inspection, PERRL, No lid inflammation ENT: positive: ENT inspection nml, No signs of dehydration. negative: Purulent nasal drainage Neck: positive: Nml inspection, Trachea midline. negative: Thyromegaly, Tracheal deviation Respiratory: positive: Chest non-tender, No respiratory distress. negative: Wheezes, Rales Cardiovascular: positive: Regular rate & rhythm, No murmur. negative: Irregularly irregular, Tachycardia, Bradycardia, Systolic murmur, Diastolic murmur Peripheral Pulses: positive: 2+ Abdomen: positive: Non-tender, Nml bowel sounds, No distention. negative: Tenderness, Guarding, Rebound Back: positive: Nml inspection. negative: CVA tenderness (R), CVA tenderness (L) Skin: positive: Color nml, Warm, Dry. negative: Cyanosis, Diaphoresis, Pallor Extremities: positive: Non-tender, Full ROM, Nml appearance. negative: Calf tenderness Neurologic/Psychiatric: positive: Oriented x3, Motor nml, Sensation nml, Mood/affect nml. negative: Weakness, Sensory loss, Facial droop, Slurred/abnml speech, Depressed mood/affect - LABS Result Diagrams: 07/19/20 04:25 07/19/20 04:25 - SEPSIS Current Stage of Sepsis: Ruled out - FOLLOW UP Follow Up: you would like to have oral medications for your new onset of diabetes. Medic ation Metformin and Glipizide are prescribed for you. you had extensive education for you how to deal with new onset of diabetes. As we discussed, You report you will do loss of your weight, exercise, control of your glucose intake, eating health diets, quit of your cigarette smoking, and control and quit of your alcohol intake as well. You may followup with your PCP in one week. Should your symptoms return or worsen, you may present ER or call 911 for help. - TIME SPENT Time Spent in Discharge (Minutes): 30
[2020-07-19 16:05] VITALS: BP 145/82
[2020-07-19] MEDS ORDERED: INSULIN GLARGINE 300 UNIT/3 ML PEN SUBQ SCH (21:00)
== END 2020-07-19 16:40 | disposition home or self-care (01) | DRG 638 ==
LOC: ED 10:23 → MS2 13:17
PROVIDERS: ADMIT Nurse Practitioner Gerontology; ATTEND Nurse Practitioner Gerontology
DX: E11.65 Type 2 diabetes mellitus with hyperglycemia (principal); E87.1 Hypo-osmolality and hyponatremia; F10.20 Alcohol dependence, uncomplicated; F17.210 Nicotine dependence, cigarettes, uncomplicated; R10.9 Unspecified abdominal pain; Z72.89 Other problems related to lifestyle; Z20.822 Contact with and (suspected) exposure to COVID-19
CPT/HCPCS: 0202U; 36415; 74177; 80048; 80053; 80306; 80320; 81003; 82009; 83036; 83605; 83690; 84295; 85025; 96360; 99284; 99285; A9270; J1650; J1815; Q9967; 81001; 87086

== ENCOUNTER 2021-04-28 01:33 | Outpatient (CLI) | payer MEDICAID | END 2021-04-28 01:34 | disposition critical access hospital (66) | LOC: EMS 01:33 | DX: R11.0 Nausea (principal); F41.9 Anxiety disorder, unspecified | CPT/HCPCS: A0425; A0429; A0999 ==

== ENCOUNTER 2021-04-28 02:11 | Emergency (ER) | payer MEDICAID ==
--- NOTE | 2021-04-28 02:58 | ED Physician Documentation ---
History of Present Illness - Stated complaint Stated Complaint: ingestion - Chief complaint Chief Complaint: General - History obtained from History obtained from: Patient - History of Present Illness Timing: Enter time (21:00), Today Pain level max: 0 Pain level now: 0 Improved by: patient says he feels better knowing he is in the emergency department, but otherwise no ameliorating factors Worsened by: no exacerbating factors - Additonal information Additional information: patient presents after having drank tea brewed with mushrooms. He says he has occasionally done this in the past but never felt like this (per patient). He cannot provide specific description(s) of what his symptoms are except for nausea (no vomiting); he describes a generalized feeling of unease but denies anxiety, AH, VH, SI, confusion. Review of Systems Constitutional: reports: Reviewed and negative Eyes: reports: Reviewed and negative Cardiac: reports: Reviewed and negative Respiratory: reports: Reviewed and negative GI: reports: Nausea. denies: Abdominal Pain, Vomiting Neurologic: denies: Confused, Altered mental status, Headache Psychiatric: denies: Depressed, Suicidal, Homicidal, Hallucinations, Delusions, Anxiety PD PAST MEDICAL HISTORY - Past Medical History Past Medical History: Yes Cardiovascular: None Respiratory: None, Pneumonia Neuro: None Endocrine/Autoimmune: Type 2 diabetes GI: None : None HEENT: None Psych: None Musculoskeletal: None - Past Surgical History Past Surgical History: Yes Ortho: Other - Present Medications Home Medications: Ambulatory Orders Medication Instructions Recorded Confirmed Blood Sugar Diagnostic [Glucometer 1 each QID #100 strip 07/19/20 Strips] Blood-Glucose Meter [Glucometer] 1 each QID #1 each 07/19/20 Lancets 1 each QID #100 each 07/19/20 Pnv No.95/Ferrous Fum/Folic AC 1 each PO DAILY #30 tablet 07/19/20 [ Tablet] Thiamine [Vitamin B-1] 100 mg PO DAILY #30 tablet 07/19/20 glipiZIDE [Glucotrol] 5 mg PO 0730 #30 tablet 07/19/20 metFORMIN [Glucophage] 850 mg PO BID #60 tablet 07/19/20 - Allergies Allergies/Adverse Reactions: Allergies Allergy/AdvReac Type Severity Reaction Status Date / Time camphor [From [employer] Vaporub] Allergy Rash Verified 07/18/20 10:36 eucalyptus Allergy Rash Verified 07/18/20 10:36 [From [employer] Vaporub] eucalyptus oil * Allergy Rash Verified 07/18/20 10:36 [From [employer]icks Vaporub] menthol [From [employer] Vaporub] Allergy Rash Verified 07/18/20 10:36 petrolatum,white Allergy Rash Verified 07/18/20 10:36 [From [employer] Vaporub] turpentine oil Allergy Rash Verified 07/18/20 10:36 [From [employer]icks Vaporub] - Social History Does the pt smoke?: Yes Smoking Status: Current every day smoker Does the pt drink ETOH?: Yes Does the pt have substance abuse?: Yes - Immunizations Immunizations are current?: No Immunizations: TDAP >10years/unknown - POLST Patient has POLST: No PD ED PE NORMAL - Vitals Vital signs reviewed: Yes - General General: Alert and oriented X 3, No acute distress, Well developed/nourished - HEENT HEENT: PERRL, EOMI, Moist mucous membranes - Neck Neck: Supple, no meningeal sign - Cardiac Cardiac: RRR, No murmur - Respiratory Respiratory: No respiratory distress, Clear bilaterally - Abdomen Abdomen: Soft, Non tender - Neuro Neuro: Alert and oriented X 3 Eye Opening: Spontaneous Motor: Obeys Commands Verbal: Oriented GCS Score: 15 - Psych Psych: Normal mood, Normal affect Results - Vitals Vitals: Oxygen O2 Source Room air - Labs Labs: Laboratory Tests 04/28/21 03:44 Sodium 138 Potassium 3.3 L Chloride 104 Carbon Dioxide 27 Anion Gap 7.0 BUN 23 H Creatinine 0.9 Estimated GFR (MDRD) 93 Glucose 169 H Calcium 9.2 Total Bilirubin 0.4 AST 24 ALT 41 Alkaline Phosphatase 39 L Total Protein 7.2 Albumin 3.9 Globulin 3.3 Albumin/Globulin Ratio 1.2 Lipase 20 L PD MEDICAL DECISION MAKING - ED course Complexity details: reviewed results, re-evaluated patient, considered differential, d/w patient ED course: patient presents after ingesting tea brewed with mushrooms. He says someone else brewed the tea. He describes nausea and a generalized feeling of unease but feels better just being in the ED under observation. His blood tests are unremarkable (incidental note of mild hypokalemia). He slept for much of his observation period in ED and did not require any medications such as benzodiazepines. On reevaluation, he is asleep but awakens easily. He is in NAD and is comfortable with discharge home. Results reviewed with patient and return precautions discussed. Departure - Departure Disposition: 01 Home, Self Care Clinical Impression: Toxic effect of mushrooms Condition: Good Instructions: ED Altered Loc Comments: Your symptoms should continue to improve and then resolve as the effects of the mushrooms wears off. Your blood test results are reassuring, with normal liver function tests. Incidentally noted is low potassium for which you were given a dose of potassium in the emergency department. Discharge Date/Time: 04/28/21 07:15
[2021-04-28 04:01] LABS: ALBUMIN 3.9 g/dL (3.2-5.5); ALBUMIN/GLOBULIN RATIO 1.2 (1.0-2.2); BILIRUBIN,TOTAL 0.4 mg/dL (0.2-1.0); CALCIUM 9.2 mg/dL (8.5-10.3); CREATININE 0.9 mg/dL (0.6-1.2); POTASSIUM 3.3 mmol/L (3.5-5.0); TOTAL PROTEIN 7.2 g/dL (6.7-8.2)
[2021-04-28] MEDS ORDERED: POTASSIUM CHLORIDE 20 MEQ TABLET PO STA (06:45)
[2021-04-28 06:51] VITALS: BP 115/61
== END 2021-04-28 07:15 | disposition home or self-care (01) ==
LOC: EDUNIT# → ED 02:11
DX: T62.0X1A Toxic effect of ingested mushrooms, accidental (unintentional), initial encounter (principal); R11.0 Nausea; E11.9 Type 2 diabetes mellitus without complications; Z96.41 Presence of insulin pump (external) (internal); Z79.4 Long term (current) use of insulin; F17.200 Nicotine dependence, unspecified, uncomplicated; E87.6 Hypokalemia
CPT/HCPCS: 36415; 80053; 83690; 99283; A9270

== ENCOUNTER 2021-06-21 19:13 | Outpatient (CLI) | payer MEDICAID | END 2021-06-21 19:14 | disposition EMS.NT | LOC: EMS 19:13 | DX: Z03.89 Encounter for observation for other suspected diseases and conditions ruled out (principal) ==